=== PATIENT | male | born 1985 | race Caucasian/White ===

== ENCOUNTER 2020-04-26 10:24 | Emergency (ER) | payer BC ==
[2020-04-26 10:30] VITALS: BP 134/94; PULSE 67; RESP 18; TEMP 97.7
[2020-04-26] MEDS ORDERED: SODIUM CHLORIDE 0.9% 500 ML 500 ML IV ONE (10:49)
[2020-04-26] MEDS ORDERED: HYDROmorphone 0.5 MG/0.5 ML SYRINGE IVP STA (11:18)
[2020-04-26] MEDS ORDERED: ONDANSETRON 4 MG/2 ML VIAL IVP STA (11:22)
--- NOTE | 2020-04-26 11:38 | CT ---
EXAMINATION TYPE: CT brain wo con DATE OF EXAM: 04/26/2020 COMPARISON: None. HISTORY: Headache acute onset severe. CT DLP: 1051.4 mGycm. Automated Exposure Control for Dose Reduction was Utilized. TECHNIQUE: CT scan of the head is performed without contrast. FINDINGS: There is no acute intracranial hemorrhage, mass effect, or midline shift identified. The ventricles and sulci are within normal limits in size. Kothari-white matter differentiation is maintain ed. Slightly low-lying cerebellar tonsils with specially right but no greater than 5 mm inferior disp lacement. Patchy soft tissue density consistent with cerumen in the left external auditory canal. The globes are intact and the visualized sinuses are clear. IMPRESSION: No acute intracranial hemorrhage or midline shift is seen.
[2020-04-26] MEDS ORDERED: KETOROLAC 15 MG/ML 1 ML VIAL IVP STA (11:40)
--- NOTE | 2020-04-26 11:41 | ED ---
Headache HPI - General Chief Complaint: Headache Stated Complaint: headaches Time Seen by Provider: 04/26/20 10:33 Mode of arrival: ambulatory Limitations: no limitations - History of Present Illness Initial Comments: 34-year-old male with history of chronic migraines since she was a child presenting with mother for chief complaint of headache. Patient states he woke up this morning around 8 AM with a headache he states that it was still at that time and progressively got worse. He denies sudden onset he states it was a vague onset he feels it may have started throughout the night. Patient states at times his blurred vision he states when his migraines become this intense he does often experiences symptom. Patient denies any photophobia he denies any fevers or neck stiffness. Patient denies any localizing symptoms such as weakness or sensation deficits he denies speech changes. Patient does admit to some nausea, denies uncontrolled vomiting. Patient denies diplopia or vision loss. Patient is no additional complaints he states this feels relatively symmetric previous headaches however slightly more intense he states he has wants to know why he keeps getting headaches his entire life. Patient has headaches weekly - Related Data Home Medications Medication Instructions Recorded Confirmed Multivitamins, Thera [Multivitamin 1 tab PO DAILY 04/26/20 04/26/20 (formulary)] Allergies Allergy/AdvReac Type Severity Reaction Status Date / Time amoxicillin [From Augmentin] Allergy Rash/Hives Verified 04/26/20 11:10 clavulanic acid Allergy Rash/Hives Verified 04/26/20 11:10 [From Augmentin] Review of Systems ROS Statement: Those systems with pertinent positive or pertinent negative responses have been documented in the HPI. ROS Other: All systems not noted in ROS Statement are negative. Past Medical History Past Medical History: No Reported History Past Surgical History: No Surgical Hx Reported Smoking Status: Current some day smoker Past Alcohol Use History: Daily Past Drug Use History: None Reported General Exam - General Exam Comments Initial Comments: General: The patient is awake and alert, in no distress, but appears uncomfortabl. Eye: +3 mm pupils are equal, round and reactive to light, extra-ocular movements are intact. No nystagmus. There is normal conjunctiva bilaterally. No signs of icterus. Ears, nose, mouth and throat: There are moist mucous membranes and no oral lesions. Neck: The neck is supple, there is no tenderness or JVD. Cardiovascular: There is a regular rate and rhythm. No murmur, rub or gallop is appreciated. Respiratory: Lungs are clear to auscultation, respirations are non-labored, breath sounds are equal. No wheezes, stridor, rales, or rhonchi. Musculoskeletal: Normal ROM, no tenderness. Strength 5/5. Sensation intact. Pulses equal bilaterally 2+. Neurological: A&O x 3. CN II-XII intact, memory intact to immediately, intermediate and correction recall. Able to follow simple verbal. Able to name a common object (pen). High quality, labial (pa) and lingual (la) speech. Low quality posterior pharynx/larynx (ga) voice sounds. Able to express general knowledge (days in a week). No hemineglect or inattention noted. Finger agnosia (-) and spatially oriented (identified L index finger touched R shoulder with L index finger). Light touch and temperature sensation present over the face, chest, abdomen, back, UE bilaterally, and LE bilaterally. Able to localize point during point localization b/l and extinction. No visible bulk atrophy, hypertrophy, fasciculations, or myoclonus of the UE or LE b/l. Full PROM in UE and LE b/l. Bilateral muscle strength 5/5 for the following muscles: deltoid, biceps, triceps, brachioradialis, wrist extensors/flexor, hip flexor, hip abductors/adductors, hamstrings, quadriceps, feet dorsiflexors/plantar flexors. Finger to nose, finger to the examiners finger, and heel to paredes coordinated and accurate b/l. Coordinated and even demonstration of hand flip, finger to thumb, and toe tap b/l. Gait is coordinated and even in stride. (-) pronator drift. No nuchal rigidity. Skin: Skin is warm and dry and no rashes or lesions are noted. Psychiatric: Cooperative, appropriate mood & affect, normal judgment. Limitations: no limitations Course Vital Signs 04/26/20 10:25 Temperature 97.7 F Pulse Rate 67 Respiratory 18 Rate Blood Pressure 134/94 O2 Sat by Pulse 100 Oximetry Medical Decision Making - Medical Decision Making CT (-). No focal deficits. Onset <4 hours prior to presentation. no meningismus or nuchal rigidity. No fevers. Patient OROZCO improved on reevaluation at ~12:00. Patient instrcuted to f/u with neurology on outpatient basis for MRI and chronic OROZCO management. Patient discharged appearing well. Disposition Clinical Impression: Frequent headaches Disposition: HOME SELF-CARE Condition: Good Instructions (If sedation given, give patient instructions): Acute Headache (ED) Additional Instructions: Please use medication as discussed. Please follow-up with family doctor in the next 2 days. Please return to emergency room if the symptoms increase or worsen or for any other concerns. Is patient prescribed a controlled substance at d/c from ED?: No Referrals: Hari Woods DO [Primary Care Provider] - 1-2 days Time of Disposition: 11:41
== END 2020-04-26 12:30 | disposition home or self-care (01) ==
LOC: EC 10:24
DX: R51 Headache (principal); F17.200 Nicotine dependence, unspecified, uncomplicated; Z88.0 Allergy status to penicillin; Z88.1 Allergy status to other antibiotic agents; Z86.69 Personal history of other diseases of the nervous system and sense organs
CPT/HCPCS: 70450; 96374; 96375 ×2; 96361; 99284; J2405; J1885; J1170

== ENCOUNTER → 2023-01-14 | Outpatient (CLI) | payer BC ==
--- NOTE | 2023-01-14 17:04 | P.SLEEP ---
History of Present Illness H&P Date: 01/14/23 This is a 37-year-old male patient was referred to me for evaluation of his sleep quality as the patient is having excessive fatigue and tiredness. The patient has been treated through his primary care physician and the patient was screened and treated for anxiety and depression without any major improvement. Based on ongoing symptoms of fatigue and tiredness, the patient was referred to me for further investigation. 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 He works between 6 PM and 6 AM in the morning and he works 5 days a week. He felt that he has no energy throughout the day and night. Despite his lack of energy, is able to function at work. He has not lost concentration and focus and he is not doing any mistakes or inhalers. He is now falling asleep on the job. He does not doze off while doing his routine activities and work. The patient is also functional driving. He does not fall asleep while driving his vehicle. He has been told to have snoring and he is not sure if he stops breathing at night. He goes to bed at around 11 AM and wakes up 4 PM. He averages around 4-5 hours of sleep. He states that he doesn't typically sleep much if he sleeps in the evening on those days that he is off. His current [place] score is at 7. No history of any head trauma. No history of any choking or gasping for air and the middle of the night. No restlessness and his lower extremities. No sleep talking. No sleep walking. No palpitations. No heartburn. He is drinking coffee around 3-4 cups while at work. No substance abuse. No alcoholism. No history of any motor vehicle accident because of feeling drowsy or sleepy. No other major medical problems and comorbidities in this patient. Past medical history is essentially negative. Review of Systems Constitutional: Reports as per HPI, Reports fatigue, Reports weight gain (The patient did gain some weight in the order of 5 pounds over the past one year and 10 pounds over the past 10 years.) Eyes: denies as per HPI, denies blurred vision, denies bulging eye, denies decreased vision, denies diplopia, denies discharge, denies dry eye, denies irritation, denies itching, denies pain, denies photophobia, denies loss of peripheral vision, denies loss of vision, denies tunnel vision/blind spots Ears: deny: decreased hearing, ear discharge, earache, tinnitus Ears, nose, mouth and throat: Reports as per HPI Breasts: absent: as per HPI, gynecomastia Cardiovascular: Reports as per HPI Respiratory: Reports as per HPI, Reports snoring Gastrointestinal: Reports as per HPI Genitourinary: Reports as per HPI Musculoskeletal: Reports as per HPI Musculoskeletal: right: ankle stiffness, absent: ankle pain, ankle swelling, as per HPI, elbow pain, elbow stiffness, elbow swelling, foot pain, foot stiffness, foot swelling, hand pain, hand stiffness, hand swelling, hip pain, hip sti ffness, hip swelling, knee pain, knee stiffness, knee swelling, shoulder pain, shoulder stiffness, shoulder swelling, wrist pain, wrist stiffness, wrist swelling Integumentary: Reports as per HPI Neurological: Reports as per HPI Psychiatric: Reports as per HPI Endocrine: Reports fatigue Hematologic/Lymphatic: Reports as per HPI Allergic/Immunologic: Reports as per HPI Past Medical History Past Medical History: No Reported History Past Surgical History: No Surgical Hx Reported Smoking Status: Current some day smoker Past Alcohol Use History: Daily Past Drug Use History: None Reported Medications and Allergies Home Medications Medication Instructions Recorded Confirmed Type Multivitamins, Thera [Multivitamin 1 tab PO DAILY 04/26/20 04/26/20 History (formulary)] Allergies Allergy/AdvReac Type Severity Reaction Status Date / Time amoxicillin [From Augmentin] Allergy Rash/Hives Verified 04/26/20 11:10 clavulanic acid Allergy Rash/Hives Verified 04/26/20 11:10 [From Augmentin] Physical Exam BP is 131/80 with a pulse of 86 and a respiration of 20 and a temperature of 98.3. Pulse ox is 97% on room air oxygen. Weight is 214 pounds. Height is 5 feet and 11 inches. [place] score is at 7. Body mass index is 29.8. The side of the neck is 16.5 inches. The patient appeared well nourished and normally developed. Vital signs as documented. Head exam is unremarkable. No scleral icterus or corneal arcus noted. Neck is without jugular venous distension, thyromegaly, or carotid bruits. Carotid upstrokes are brisk bilaterally. Lungs are clear to auscultation and percussion. Cardiac exam reveals the PMI to be normally sized and situated. Rhythm is regular. First and second heart sounds normal. No murmurs, rubs or gallops. Abdominal exam reveals normal bowel sounds, no masses, no organomegaly and no aortic enlargement. Extremities are nonedematous and both femoral and pedal pulses are normal. Examination of the skin revealed no evidence of si gnificant rashes, suspicious appearing nevi or other concerning lesions.Neurologically, the patient is awake and alert and the patient does not have any focal neurological deficit. Cranial nerves are essentially intact. Assessment and Plan Plan: Chronic fatigue with limited sleepiness. [place] score is at 7. The patient has some mild soft snoring. He has also gained some weight over the past 5 years. Nevertheless, his overall body mass index is 29.8 and the patient's [place] score is at 7. As such, the exact cause for his chronic fatigue and tiredness and exhaustion is not clear. Rule out possibility of insufficient sleep syndrome. 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 Nevertheless he is also symptomatic on the days that he is not working. 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 We'll do a daytime study to evaluate the patient's overall sleep quality. The patient states that he is unable to sleep well at night. As such, a daytime study will be done to evaluate this patient's sleep quality and decide if further treatment is needed and or his chronic fatigue and sleepiness is related to any form of a poor sleep quality was sleep disorder. Encourage weight loss. Maintain regular sleep schedule. Maintaining good sleep hygiene measures. We'll continue to follow. Sleep Note - Sleep Note Sleep Note: Temperature: Pulse Rate: Respiratory Rate: Blood Pressure: SpO2: Height: Weight: BMI: Neck Circumference:
== END ==
LOC: 3 N SLEEP 14:25
PROVIDERS: ATTEND Internal Medicine Critical Care Medicine
DX: G47.26 Circadian rhythm sleep disorder, shift work type (principal); Z88.0 Allergy status to penicillin; Z88.1 Allergy status to other antibiotic agents
CPT/HCPCS: 99211

== ENCOUNTER → 2023-02-05 | Outpatient (CLI) | payer BC ==
--- NOTE | 2023-02-12 22:58 | P.PCN ---
Date of Procedure: 02/05/23 Operative Findings: Polysomnography report Date of service 02/05/2023 Pertinent history Chronic fatigue with limited sleepiness. Murray score is at 7. The patient has some mild soft snoring. He has also gained some weight over the past 5 years. Nevertheless, his overall body mass index is 29.8 and the patient's Murray score is at 7. As such, the exact cause for his chronic fatigue and tiredness and exhaustion is not clear. Rule out possibility of insufficient sleep syndrome. Rule out manager shift worker disease. Nevertheless he is also symptomatic on the days that he is not working. Physical findings Weight is 214 pounds. Height is 5 feet and 11 inches. Murray score is at 7. Body mass index is 29.8. The side of the neck is 16.5 inches Technical description The patient was studied using a standard complex polysomnography protocol that included recording of the 2 EKG, Central, occipital and frontal EEG, right and left outer canthus EOG, submental EMG, right and left anterior tibialis EMG, respiratory airflow by thermocouple and or pressure/flow transducer, respiratory efforts by abdominal and thoracic PVDF belts, oxygen saturation by cable oximetry. Position by observation synchronized the PSG. 4 children 12 and selected patients, ETCO2 may be added to the recording. Equipment used: Be Here. Sleep architecture The total time in bed was 367.5 minutes. Total sleep time was 336.5 minutes. The overall sleep efficiency was 91.6%. Latency to sleep onset was 30.5 minutes. Latency to REM sleep was 19.5 minutes. The sleep architecture was catheterized by 14.6% stage I, 62% stage II, 3 0.1% stage III and 20.4% REM sleep Sleep continuity summary Patient had total of 68 arousals with arousal index of 12.1 Periodic limb movement summary No significant periodic limb with identified throughout the sleep study Cardiac summary Average heart rate was 71, minimally to 66 and the maximum heart is a 77, sinus rhythm Respiratory analysis The patient had a total of 0 obstructive apneas, 0 mixed apneas, 1 obstructive hypopneas and 4 central apneas. The apnea hypopneas index was measured to be at 0.9 Oxygenation analysis The minimum recorded pulse ox was 87% during REM sleep. 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 The patient continues to be functional during his working hours Follow-up with his primary care physician. Patient has adequate sleep function, architecture and no significant pathology identified on the current sleep study.
== END ==
LOC: 3 N SLEEP 07:37
PROVIDERS: ATTEND Internal Medicine Critical Care Medicine
DX: R06.83 Snoring (principal); R53.82 Chronic fatigue, unspecified; Z88.0 Allergy status to penicillin; Z88.1 Allergy status to other antibiotic agents
CPT/HCPCS: 95810